=== PATIENT | female | born 1965 | race Caucasian/White ===

== ENCOUNTER 2024-07-02 08:50 | Outpatient (CLI) | payer OTHER | END 2024-07-02 08:51 | disposition home or self-care (01) | LOC: CSHCP 08:50 | PROVIDERS: ATTEND Internal Medicine | DX: J96.11 Chronic respiratory failure with hypoxia (principal); R94.2 Abnormal results of pulmonary function studies | CPT/HCPCS: 94010; 94618; 94726; 94729 ==

== ENCOUNTER 2024-08-16 13:24 | Outpatient (CLI) | payer OTHER | END 2024-08-16 13:25 | disposition home or self-care (01) | LOC: CSHULT 13:24 | PROVIDERS: ATTEND Internal Medicine | DX: J96.11 Chronic respiratory failure with hypoxia (principal); I34.0 Nonrheumatic mitral (valve) insufficiency; I51.9 Heart disease, unspecified | CPT/HCPCS: 93306 ==

== ENCOUNTER 2025-07-07 05:29 | Day surgery (SDC) | payer OTHER ==
[2025-06-30 08:30] VITALS: BMI 25.4
[2025-07-07] MEDS ORDERED: CEFAZOLIN 2 GM VIAL ONE (06:53)
[2025-07-07] MEDS ORDERED: Bupivacaine/Epinephrine 0.25% 30 ML VIAL ONE (06:53)
[2025-07-07] MEDS ORDERED: Lidocaine 1% PF 5 ML VIAL ONE ×2 (07:33→08:25)
[2025-07-07] MEDS ORDERED: PROPOFOL 20 ML ONE (08:03)
[2025-07-07] MEDS ORDERED: Glycopyrrolate 0.2 MG/ML 5 ML SYRINGE ONE (08:25)
[2025-07-07] MEDS ORDERED: Rocuronium Bromide 10 MG/ML (10ML VIAL) ONE (08:25)
[2025-07-07] MEDS ORDERED: SUGAMMADEX SODIUM 200 MG/2 ML VIAL ONE ×2 (09:41→12:02)
[2025-07-07] MEDS ORDERED: HYDROcodone/Acetaminophen 5/325 mg Tablet ONE (10:36)
[2025-07-07] MEDS ORDERED: Ketorolac Tromethamine 30 MG (1 mL) VIAL ONE (12:02)
== END 2025-07-07 11:15 | disposition home or self-care (01) ==
LOC: CSHSDC 05:29
PROVIDERS: ATTEND Surgery
PROC: 0WUF4JZ Supplement Abdominal Wall with Synthetic Substitute, Percutaneous Endoscopic Approach (ICD-10-PCS; principal; 2025-07-07)
DX: K43.2 Incisional hernia without obstruction or gangrene (principal); Z88.5 Allergy status to narcotic agent; Z91.0110 Allergy to milk products, unspecified
CPT/HCPCS: C1781; J1885; J2704; S2900